=== PATIENT | male | born 2005 ===

== ENCOUNTER 2025-03-29 21:17 | Inpatient (IN) | payer OTHER ==
[2025-03-29 22:19] VITALS: BMI 26.8
[2025-03-29] MEDS ORDERED: Ondansetron PF 4 MG/2 ML Vial IVP PRN (22:44)
[2025-03-29] MEDS ORDERED: Acetaminophen 325 MG TAB PO PRN (22:44)
[2025-03-29 23:25] LABS: Troponin I 9.533 ng/mL (< 0.028)
[2025-03-30 02:01] LABS: #Basophils Less than 0.03 10x3/uL (0.0-0.2); #Eosinophils 0.11 10x3/uL (0.0-0.5); #Monocytes 0.90 10x3/uL (0.0-1.1); #Neutrophils 3.64 10x3/uL (1.5-8.4); %Basophils 0.3 % (0.0-2.0); %Eosinophils 1.6 % (0.0-6.0); %Lymphocytes 30.5 % (18.0-47.0); %Monocytes 13.4 % (0.0-10.0); %Neutrophils 54.1 % (40.0-75.0); Hematocrit 45.3 % (38.8-50.0); Hemoglobin 15.2 g/dL (13.5-17.5); Mean Corpuscular Hemoglobin 30.3 pg (27.0-33.0); Mean Corpuscular Volume 90.2 fL (81.2-95.1); Platelet Count 187 10x3/uL (150-450); Red Blood Cell (RBC) Count 5.02 10x6/uL (4.32-5.72); White Blood Cell (WBC) Count 6.73 10x3/uL (3.5-10.5)
[2025-03-30 02:11] LABS: Cocaine Metabolite Screen Negative (Negative); THC/Cannabinoid Screen Negative (Negative); Tricyclic Screen Negative (Negative)
[2025-03-30 02:21] LABS: Anion Gap 11 mmol/L (10-20); BUN (Urea Nitrogen) 15 mg/dL (8.9-20.6); Calc. Creatinine Clearance 140 mL/min (70-130); Calcium 9.2 mg/dL (7.8-10.44); Carbon Dioxide 29 mmol/L (22-29); Chloride 105 mmol/L (98-107); Glucose 122 mg/dL (70-105); Potassium 4.2 mmol/L (3.5-5.1); Sodium 141 mmol/L (136-145)
[2025-03-30 02:28] LABS: Troponin I 12.767 ng/mL (< 0.028)
[2025-03-30] MEDS: Nitroglycerin 0.4 MG TAB (25 Tab Bottle) SL PRN (06:15)
[2025-03-30] MEDS: Aspirin 325 MG TAB PO SCH (06:21)
[2025-03-30] MEDS: Nitroglycerin 0.4 MG TAB (25 Tab Bottle) ONE (06:24)
[2025-03-30 06:33] LABS: Troponin I 15.297 ng/mL (< 0.028)
[2025-03-30] MEDS: Ketorolac Tromethamine 30 MG (1 mL) VIAL IVP SCH (06:42)
[2025-03-30] MEDS: Colchicine 0.6 MG TAB PO SCH ×2 (06:57→20:11)
[2025-03-30] MEDS ORDERED: Ondansetron PF 4 MG/2 ML Vial IVP PRN (07:48)
[2025-03-30] MEDS: Losartan 50 MG TAB PO SCH (08:37)
[2025-03-30 08:53] LABS: Magnesium 2.2 mg/dL (1.7-2.2)
[2025-03-30] MEDS: cefTRIAXone\\ROCEPHIN 1 GM in Sodium Chloride 0.9% 100 ML IVPB SCH (12:32)
[2025-03-30 14:45] LABS: Influenza A by NAA Not Detected (NotDetected); Influenza B by NAA Not Detected (NotDetected); SARS-CoV-2 NAA Rapid Test Not Detected (NotDetected)
[2025-03-30 17:21] LABS: Troponin I 13.663 ng/mL (< 0.028)
[2025-03-30] MEDS: Pantoprazole 40 MG DR.TAB PO SCH (18:01)
[2025-03-31 05:19] LABS: #Basophils Less than 0.03 10x3/uL (0.0-0.2); #Eosinophils Less than 0.03 10x3/uL (0.0-0.5); #Monocytes 1.16 10x3/uL (0.0-1.1); #Neutrophils 9.71 10x3/uL (1.5-8.4); %Basophils 0.2 % (0.0-2.0); %Eosinophils 0.1 % (0.0-6.0); %Lymphocytes 12.3 % (18.0-47.0); %Monocytes 9.3 % (0.0-10.0); %Neutrophils 77.7 % (40.0-75.0); Hematocrit 45.7 % (38.8-50.0); Hemoglobin 15.6 g/dL (13.5-17.5); Mean Corpuscular Hemoglobin 30.4 pg (27.0-33.0); Mean Corpuscular Volume 89.1 fL (81.2-95.1); Platelet Count 249 10x3/uL (150-450); Red Blood Cell (RBC) Count 5.13 10x6/uL (4.32-5.72); White Blood Cell (WBC) Count 12.49 10x3/uL (3.5-10.5)
[2025-03-31 05:35] LABS: ALT (SGPT) 31 U/L (Less than 45); AST (SGOT) 73 U/L (11-34); Albumin 3.7 g/dL (3.1-4.5); Alkaline Phosphatase 58 U/L (50-130); Anion Gap 12 mmol/L (10-20); BUN (Urea Nitrogen) 19 mg/dL (8.9-20.6); Bilirubin, Total 0.6 mg/dL (0.3-1.2); Calc. Creatinine Clearance 150 mL/min (70-130); Calcium 9.6 mg/dL (7.8-10.44); Carbon Dioxide 27 mmol/L (22-29); Cardiac Risk 4.4 (Less than 4.5); Chloride 106 mmol/L (98-107); Cholesterol 146 mg/dl (< 200 Desired); Globulin 3.2 g/dL (2.4-3.5); Glucose 119 mg/dL (70-105); HDL Cholesterol 33 mg/dL (>60 Neg Risk); LDL Cholesterol, Calculated 100 mg/dL; Magnesium 2.0 mg/dL (1.7-2.2); Potassium 4.5 mmol/L (3.5-5.1); Sodium 140 mmol/L (136-145); Triglycerides 63 mg/dL (Less than 150)
[2025-03-31] MEDS: Enoxaparin 40 MG (0.4 mL) SYRINGE SC SCH (08:24)
[2025-03-31] MEDS: Pantoprazole 40 MG DR.TAB PO SCH (08:25)
[2025-03-31 18:50] LABS: Troponin I 4.251 ng/mL (< 0.028)
[2025-04-01 06:28] LABS: #Basophils Less than 0.03 10x3/uL (0.0-0.2); #Eosinophils Less than 0.03 10x3/uL (0.0-0.5); #Monocytes 1.00 10x3/uL (0.0-1.1); #Neutrophils 9.14 10x3/uL (1.5-8.4); %Basophils 0.2 % (0.0-2.0); %Eosinophils 0.1 % (0.0-6.0); %Lymphocytes 18.2 % (18.0-47.0); %Monocytes 8.0 % (0.0-10.0); %Neutrophils 72.9 % (40.0-75.0); Hematocrit 45.7 % (38.8-50.0); Hemoglobin 15.8 g/dL (13.5-17.5); Mean Corpuscular Hemoglobin 31.0 pg (27.0-33.0); Mean Corpuscular Volume 89.8 fL (81.2-95.1); Platelet Count 261 10x3/uL (150-450); Red Blood Cell (RBC) Count 5.09 10x6/uL (4.32-5.72); White Blood Cell (WBC) Count 12.53 10x3/uL (3.5-10.5)
[2025-04-01 06:45] LABS: Anion Gap 12 mmol/L (10-20); BUN (Urea Nitrogen) 17 mg/dL (8.9-20.6); Calc. Creatinine Clearance 135 mL/min (70-130); Calcium 9.3 mg/dL (7.8-10.44); Carbon Dioxide 28 mmol/L (22-29); Chloride 103 mmol/L (98-107); Glucose 102 mg/dL (70-105); Magnesium 2.1 mg/dL (1.7-2.2); Potassium 4.3 mmol/L (3.5-5.1); Sodium 139 mmol/L (136-145)
[2025-04-01 09:46] VITALS: TEMP 97.8
[2025-04-01 14:15] VITALS: BP 119/69
== END 2025-04-01 14:34 | disposition home or self-care (01) | DRG 315 ==
LOC: CSHTELE 22:10 → UNDOADMOB 22:10 → OBSVTOIN 03-30 14:09 → INTOOBSV 03-30 14:09 → UNDODISIN 04-01 14:34
PROVIDERS: ADMIT Internal Medicine; ATTEND Internal Medicine
DX: I40.9 Acute myocarditis, unspecified (principal); I50.22 Chronic systolic (congestive) heart failure; R07.2 Precordial pain; J02.0 Streptococcal pharyngitis; Z79.899 Other long term (current) drug therapy
CPT/HCPCS: 36415; 80048; 80053; 80061; 80306; 83735; 84443; 84484; 85025; 86060; 86140; 87070; 87636; 93005; 93010; 93306; 94760; 94762; 96374; 96375; G0378; J0696; J1650; J1885; J2272; J2919